=== PATIENT | female | born 1970 | race Two or more races ===

== ENCOUNTER 2016-11-15 13:02 | Day surgery (SDC) | payer OTHER ==
[~2016-11-15] VITALS: Ht 162.6 cm; Wt 97.8 kg
[2016-11-15] MEDS ORDERED: NO DAILY MEDS (14:22)
[2016-11-15 14:27] VITALS: Ht 162.6 cm; Wt 97.8 kg
[2016-11-15 14:49] VITALS: BP 117/73; PULSE 71; RESP 18
[2016-11-15 16:05] VITALS: BP 106/59; PULSE 64; RESP 20
[2016-11-15] MEDS ORDERED: FENTAnyl 50 MCG/ML VIAL ONE (16:14)
[2016-11-15] MEDS ORDERED: MIDAZOLAM 1 MG/ML 2 ML INJ ONE ×3 (16:14)
[2016-11-15 16:33] VITALS: BP 104/64; RESP 14
--- NOTE | 2016-11-15 18:19 | OPPN ---
Date/Time of Note Date/Time of Note DATE: 11/15/16 TIME: 18:16 Proc Note GI Procedure date: Nov 15, 2016 Pre-procedure Diagnosis * Family history of colon cancer Post-procedure Diagnosis Assessment: * Normal colonic mucosa to cecum * Moderate-sized internal hemorrhoids * Family history of colon cancer Plan: * High-fiber diet * Annual Hemoccult stool testing * Screening colonoscopy in 5 years due to high risk Operation Performed * Colonoscopy to cecum Surgeon: NIXON MCGOWAN MD Anesthesia Type: moderate sedation (Versed 5 mg fentanyl 100 mcg) Estimated blood loss: none Transfusion Required: no Specimen: none Grafts/Implants: none Complications: no Pt Condition post procedure: stable Disposition: other (Home) Procedure Description After informed consent, with the patient/relatives understanding the procedure, its indications and potential risks and complications, including but not limited to: Allergic reaction, bleeding, perforation, infection, and after all pertinent questions were answered to the patient's satisfaction, the patient/ relatives signed the witnessed informed consent. Following this, premedication was administered slowly IV push under careful cardiovascular and respiratory monitoring with pulse OXIMETRY, automatic blood pressure, and child monitor. Once the sedative effect was achieved, the patient was placed in the left lateral decubitus position, digital rectal examination was performed. The colonoscope was then introduced and advanced under visual control throughout all segments of the colon including: the rectum, sigmoid, descending colon, splenic flexure, transverse colon, hepatic flexure, ascending colon and finally reaching the cecum which was clearly identified by transillumination, finger indentation and the ileocecal valve. Careful examination of the mucosa of the lower gastrointestinal tract both on insertion as well as withdrawal of the instrument disclosed the following findings: PREPARATION QUALITY: [Adequate], RECTAL EXAM: The anorectal area was visualized examined and digital rectal examination performed with the following findings: No evidence of perirectal disease, no masses. COLONIC MUCOSA: The mucosa of all segments of the colon was carefully examined and showed the following findings: the examined mucosa appears within normal limits. There is no evidence of inflammatory changes, diverticular formation, polyps or other neoplasms, vascular malformation, or any other abnormality. Moderate size internal hemorrhoids The instrument was then withdrawn, the patient tolerated the procedure well and was transferred out of the Endoscopy Suite awake and in good condition to continue recovery under observation. NIXON MCGOWAN MD Nov 15, 2016 18:19
--- NOTE | 2016-11-15 18:23 | OPPN ---
Date/Time of Note Date/Time of Note DATE: 11/15/16 TIME: 18:20 Proc Note GI Procedure date: Nov 15, 2016 Pre-procedure Diagnosis * Dyspepsia Post-procedure Diagnosis Assessment: * Moderate distal esophagitis * Moderate gastritis. Rule out H. pylori infection. Biopsies obtained * Otherwise normal EGD Plan: * Continue PPI therapy * Review pathology * Follow-up as previously scheduled Operation Performed EGD with biopsies Surgeon: NIXON MCGOWAN MD Grades 9 12 Tutor: NIXON MCGOWAN MD Anesthesia Type: moderate sedation (Versed 5 mg fentanyl 100 mcg) Estimated blood loss: none Transfusion Required: no Specimens Gastric body and antrum Grafts/Implants: none Complications: no Pt Condition post procedure: stable Disposition: other (Home) Procedure Description After informed consent, with the patient/relatives understanding the procedure, its indications, potential risks and complications, including but not limited to : allergic reaction, bleeding, perforation or infection, and after all pertinent questions were answered to the patients satisfaction, the patient/ relatives signed witnessed informed consent. Following this, premedication was administered slowly IV push under careful cardiovascular and respiratory monitoring with pulse oximetry, automatic blood pressure, and case monitor. Once the sedative effect was achieved the patient was place in the left lateral decubitus, the panendoscope was introduced and advanced under visual control. Careful examination of the upper gastrointestinal tract, both on insertion as well as withdrawal of the instrument disclosing the following findings: ESOPHAGUS: the mucosa of the entire esophagus was carefully examined and showed the following findings: There is mild to moderate erythema and edema of the mucosa at the e.g. junction. Otherwise the mucosa appears within normal limits. There is no evidence of varices, neoplasm, or stricture. No Hiatal Hernia identified. STOMACH: Upon entrance to the stomach air was insufflated, the gastric campos distended normally. The mucosa of the fundus, body and antrum of the stomach was carefully examined both head-on and on retroflexion, and showed the following findings: There is moderate erythema and edema of the mucosa of the body and antrum the stomach. Biopsies were obtained to rule out H. pylori infection. Otherwise the mucosa appears within normal limits with no abnormalities. There is no evidence of ulcers or neoplasm. PYLORUS: The pylorus was carefully examined and showed the following findings: the pylorus appears patent and within normal limits, with no evidence of gastric outlet obstruction. DUODENUM: The duodenal mucosa was carefully examined in the duodenal bulb as well as the second portion of the duodenum and showed the following findings: the mucosa appears unremarkable with no evidence of duodenitis, ulcer or neoplasm. NIXON MCGOWAN MD Nov 15, 2016 18:23
== END 2016-11-15 16:19 | disposition home or self-care (01) ==
LOC: GIL 13:02
PROVIDERS: ATTEND Internal Medicine Gastroenterology
DX: K29.30 Chronic superficial gastritis without bleeding (principal); K20.8 Other esophagitis; K64.8 Other hemorrhoids; Z80.0 Family history of malignant neoplasm of digestive organs; E78.00 Pure hypercholesterolemia, unspecified
CPT/HCPCS: 43239; 45378; 88305; 88312; J2250; J3010; Z7610